=== PATIENT | female | born 1995 | race Caucasian/White ===

== ENCOUNTER 2017-12-04 10:25 | Inpatient (IN) | payer BC ==
[~2017-12-04] VITALS: Ht 154.9 cm; Wt 59.1 kg
[~2017-12-04 10:25] MED LIST: ETON1VAG VG
[2017-12-04] MEDS ORDERED: LACTATED RINGERS 1,000 ML IV SCH (15:09)
[2017-12-04 15:10] VITALS: BP 140/97
[2017-12-04] MEDS ORDERED: LIDOCAINE-MPF 2%, 2ML ONE (15:23)
[2017-12-04] MEDS ORDERED: LIDOCAINE-MPF 1%, 5ML ONE (15:25)
[2017-12-04] MEDS ORDERED: LIDOCAINE-MPF 1%, 2ML INFIL ONE (15:30)
[2017-12-04 15:43] LABS: HCG UR SG 1.027 (1.003-1.030)
[2017-12-04] MEDS ORDERED: BUPIVACAINE/PF-EPI 0.25% 1:200K ONE (16:07)
[2017-12-04] MEDS ORDERED: LIDOCAINE 1%-EPI 1:100K, 30ML ONE (16:08)
[2017-12-04] MEDS ORDERED: CHLORHEXIDINE 15 ML UDC ONE ×2 (16:22→16:24)
[2017-12-04] MEDS ORDERED: MIDAZOLAM 1 MG/ML, 2ML ONE (16:28)
[2017-12-04] MEDS ORDERED: FENTANYL PF 250 MCG/5ML ONE ×2 (16:29→18:16)
[2017-12-04] MEDS ORDERED: ONDANSETRON 2MG/ML, 2ML ONE ×2 (16:30→16:31)
[2017-12-04] MEDS ORDERED: PROPOFOL 10 MG/ML, 20ML ONE (16:30)
[2017-12-04] MEDS ORDERED: ROCURONIUM 10MG/ML,5ML ONE (16:30)
[2017-12-04] MEDS ORDERED: DEXAMETHASONE 4 MG/ML, 1ML ONE ×2 (16:31)
[2017-12-04] MEDS ORDERED: SCOPOLAMINE PATCH, 1.5MG PATCH.TD72 TD ONE (16:38)
[2017-12-04] MEDS ORDERED: DEXMEDETOMIDINE 200 MCG/2 ML ONE (16:39)
[2017-12-04] MEDS ORDERED: PHENYLEPHRINE NASAL 0.25%, 15ML SPRAY ONE (16:39)
[2017-12-04] MEDS ORDERED: KETOROLAC 30 MG/1 ML ONE (16:47)
[2017-12-04] MEDS ORDERED: CEFAZOLIN 1,000 MG ONE ×2 (16:56)
[2017-12-04] MEDS ORDERED: FENTANYL PF 100 MCG/2ML IV PRN (18:00)
[2017-12-04] MEDS ORDERED: PROMETHAZINE 25 MG/ML, 1ML IV PRN (18:00)
[2017-12-04] MEDS ORDERED: OXYcodone 5 MG/5 ML ORAL.SOL UDC PO PRN (18:00)
[2017-12-04] MEDS ORDERED: MEPERIDINE/PF 25MG/0.5ML IVPush PRN (18:00)
[2017-12-04] MEDS ORDERED: HALOPERIDOL 5 MG/ML IV PRN (18:00)
[2017-12-04] MEDS ORDERED: ACETAMINOPHEN 325 MG TABLET PO PRN (18:00)
[2017-12-04] MEDS ORDERED: HYDROmorphone 2 MG/ML, 1ML IV PRN ×2 (18:00→21:30)
[2017-12-04] MEDS ORDERED: FENTANYL PF 100 MCG/2ML ONE (19:31)
[2017-12-04] MEDS ORDERED: MEPERIDINE/PF 50 MG/ML ONE (19:31)
[2017-12-04] MEDS ORDERED: HYDROmorphone 2 MG/ML, 1ML ONE (19:31)
[2017-12-04] MEDS: KETOROLAC 30 MG/1 ML IV PRN (22:17)
[2017-12-04 23:58] VITALS: BP 118/78
[2017-12-05] MEDS: ONDANSETRON 2MG/ML, 2ML IVPush PRN ×2 (00:23→10:23)
[2017-12-05] MEDS: HYDROcodone/APAP 7.5-325MG/15ML UDC PO PRN ×3 (00:23→14:35)
[2017-12-05 04:00] VITALS: BP 118/79
[2017-12-05] MEDS: LACTATED RINGERS 1,000 ML IV SCH ×2 (04:15→09:32)
[2017-12-05] MEDS: KETOROLAC 30 MG/1 ML IV PRN (05:26)
[2017-12-05 07:31] VITALS: BP 108/72
[2017-12-05 14:45] VITALS: BP 107/75
== END 2017-12-05 15:40 | disposition home or self-care (01) | DRG 131 ==
LOC: ORIP 14:19 → 4NOR 20:50 → DCLOUNGE 12-05 15:27
PROVIDERS: ADMIT Dentist; ATTEND Dentist
PROC: 0NQV0ZZ Repair Left Mandible, Open Approach (ICD-10-PCS; 2017-12-04)
PROC: 0CDXXZ0 Extraction of Lower Tooth, Single, External Approach (ICD-10-PCS; 2017-12-04)
PROC: 0NQT0ZZ Repair Right Mandible, Open Approach (ICD-10-PCS; principal; 2017-12-04 16:30)
DX: M26.04 Mandibular hypoplasia (principal); S02.69XA Fracture of mandible of other specified site, initial encounter for closed fracture; K01.1 Impacted teeth; X58.XXXA Exposure to other specified factors, initial encounter; Y93.89 Activity, other specified; Y92.89 Other specified places as the place of occurrence of the external cause; Y99.8 Other external cause status
CPT/HCPCS: 81025; 93005; C1713; J0690; J1100; J1885; J2250; J2405; J2704; J3010; J3490; J7120